=== PATIENT | male | born 1965 | race Hispanic/Latino ===

== ENCOUNTER 2023-09-11 05:57 | Day surgery (SDC) | payer OTHER ==
[2023-08-30 16:16] LABS: Protime INR 1.02
[2023-08-30 16:18] LABS: Absolute Lymphocytes (CBC) 2.1 K/uL (0.7-4.9); Hematocrit 39.7 % (39.6-49.0); Lymphocytes % 32.3 % (15.3-44.8); MCV 92.6 fL (80-100); MPV 9.5 fL (7.6-11.3); Platelets 207 thou/uL (152-406); RBC Red Blood Cell Count 4.29 M/uL (4.33-5.43)
[2023-08-30 16:47] LABS: Potassium 3.8 mEq/L (3.5-5.1)
--- NOTE | 2023-08-30 18:49 | RAD REPORT ---
EXAM DESCRIPTION: RAD - Chest Pa And Lat (2 Views) - 08/30/2023 3:56 pm CLINICAL HISTORY: pre op pending urolift/laser litho. Hypertension COMPARISON: No comparisons TECHNIQUE: PA and lateral views of the chest were obtained. FINDINGS: Right more than left interstitial prominence or perihilar hazy opacification. In the absen ce of any relevant signs/symptoms, findings may represent atelectasis versus mild central congestion. No other acute pulmonary process. Heart size is normal and central vasculature is within normal limi ts. No pleural effusion or pneumothorax seen. No acute bony finding noted. IMPRESSION: As above.
--- NOTE | 2023-08-31 14:24 | EKG ---
Test Date: 2023-08-30 Test Time: 16:28:08 Calendar Control Clerk Blood Bank: [facility] MEASUREMENT RESULTS: Intervals: Rate: 67 IN: 124 QRSD: 78 QT: 428 QTc: 452 [place]: P: 71 IN: 124 QRS: 54 T: -48 INTERPRETIVE STATEMENTS: Normal sinus rhythm T wave abnormality, consider inferior ischemia T wave abnormality, consider anterolateral ischemia Abnormal ECG No previous ECG available for comparison Electronically Signed On 08-31-23 14:22:15 RATE INSERTER by Nilo Choi
[2023-09-11] MEDS: Ringers Lactate 1,000 ML IV ONE ×2 (06:35→08:47)
[2023-09-11] MEDS: HYDRALAZINE HCL 20 MG/ML VIAL ONE ×2 (06:40→06:59)
[2023-09-11] MEDS ORDERED: LIDOCAINE 1% MPF 5 ML VIAL ONE (07:07)
[2023-09-11] MEDS ORDERED: propofoL 200 MG/20 ML VIAL IV ONE ×2 (07:07→14:55)
[2023-09-11] MEDS ORDERED: ONDANSETRON 4 MG/2 ML VIAL ONE (07:07)
[2023-09-11] MEDS ORDERED: MIDAZOLAM HCL 2 MG/2 ML INJ ONE (07:08)
[2023-09-11] MEDS ORDERED: FENTANYL CITR 100 MCG/2 ML ONE (07:08)
[2023-09-11] MEDS ORDERED: CEFAZOLIN SODIUM 2 GM/VIAL ONE (08:12)
[2023-09-11] MEDS: LABETALOL 20 MG/4ML SYRINGE IV SCH ×2 (08:17→08:35)
[2023-09-11] MEDS ORDERED: EPHEDRINE SULF 50 MG/ML VIAL ONE (09:10)
[2023-09-11] MEDS ORDERED: HYDROCODONE/APAP 7.5/325 MG TAB ONE (11:13)
[2023-09-11] MEDS ORDERED: PHENAZOPYRIDINE 100MG TAB PO ONE (11:36)
[2023-09-11] MEDS ORDERED: CODEINE 30MG/APAP 300MG TAB PO PRN (11:36)
--- NOTE | 2023-09-11 13:13 | OP ---
Surgeon: JESSE NAVARRO Preoperative Diagnoses: 1.Multiple bladder calculi, greater than 5, approximately 1.5 cm in diameter each. 2.BPH with lower urinary tract obstruction and symptoms. Postoperative Diagnoses: 1.Multiple bladder calculi, greater than 5, approximately 1.5 cm in diameter each. 2.BPH with lower urinary tract obstruction and symptoms. Principal Procedures: 1.Cystolitholapaxy with holmium laser. 2.Prostatic urethral lift/UroLift with 7 implants placed. Findings: 1.Multiple bladder calculi seen, some small, less than 5 mm, but at least 4 or 5 larger stones, each about 1.5 cm in diameter observed. 2.Significant BPH with interdigitating intraluminal obstruction and while continuous anterior channe l was visible, potential residual obstructing tissue observed that would potentially require at least an additional 3 implants. Indication For Procedure: Mr. Sukhjinder Quinones presented to the [facility] with gross hematuria and bothersome lower urinary symptoms due to BPH. He underwent evaluation revealing the presence of about 8 bladder calculi with the largest seen to be about 1 cm in diameter on outpatient cystoscopy. He also underwent transrectal ultrasonography, which revealed a 64.64 g gland, and his PSA was 1.97 from 08/06/2023 suggestive of a low risk of any significant prostate cancer. As a result, he was co unseled on the need for management of the bladder calculi and counseled on options for management of his obstruction due to BPH, which under lied the development of the bladder calculi. Procedure In Detail: The patient was consented in the preoperative holding area before being transfe rred to the operative suite where general anesthesia was induced. He was given Ancef 2 g IV antimicr obial prophylaxis, and pneumo boots were provided for DVT prophylaxis. He was placed in the lithotom y position, padded and secured to the table appropriately. His genitalia were prepped with Hibiclens and he was draped in standard fashion. The case was begun using a 22-Ecuadorean rigid cystoscope to tra verse the urethra into the bladder with ease. The previously observed interdigitating lateral lobar hypertrophy and elevated median bar was again observed. Upon entry into the bladder, the bladder leilani culi were noted dependent within the bladder. While some of the tiny sub 5 mm calculi did indeed com e out just with the scope being in place through the lumen of the scope, at least 5 additional calcul i were of significant size that required fragmentation. As a result, I used a 500 nm laser fiber nikita pemberton with a power setting of 1.2 and 15 to begin fragmenting the stone. I increase that power to 1 .5 and 25, because the stones were somewhat hard, and continued fragmentation. After each of the sto jayden was fragmented sufficient to remove the fragments via the cystoscope or with use of the [employer] topher cuator, I then confirmed all stone fragments were removed cystoscopically before then removing the cy stoscope and switching for the 20-Ecuadorean UroLift sheath and visual obturator. I then began the UroLi ft procedure by switching the visual obturator for an implant delivery device, and I targeted the fir st implant in the high anterior location at the bladder neck on the left. So starting by identifying a position at around the 1 o'clock position about 1.5 cm distal to the bladder neck on the left side , I angled the scope about 15 degrees and pulled the trigger the first time delivering the needle thr ough the substance of the prostate. I then angled the scope an additional 15 degrees to ensure compl ete delivery of the needle outside the capsular surface before pulling the trigger a second time depl oying the capsular tab and partially retracting the needle. I then pulled the needle a third time wh ich completely retracted the needle and further tensioned the suture. I then advanced the scope back toward the midline and then toward the bladder neck opening about 1.5 to 2 mm until the white line o f the monofilament was centered in the delivery bay and yet we were still distal to the bladder neck opening before I pulled the trigger a fourth time delivering the urethral in piece which did situate nicely elevating the bladder neck on the patient's left side. I then advanced the scope back into th e bladder and switched the delivery device for a new implant before targeting contralateral position on the patient's right side and placing a similar implant at around the 11 o'clock position on the pa tient's right side. This implant ended up placed about 0.5 cm more distal than the last implant, but nevertheless elevating the anterior portion of the prostate creating an opening at the bladder neck. I then turned my attention to the apex, where I placed an implant at the left apex at around the 2 to 3 o'clock position and then placed a similar implant contralaterally at the right side of the apex at around the 9 to 10 o'clock position. Once these implants were created, I then surveyed the chann el using a visual obturator, and there was still significant interdigitating lateral lobar hypertroph y between the apical implant at the verumontanum and the bladder neck implant. So, I then placed an additional implant in the mid zone of the prostate on the left side at around the 3 o'clock position lateralizing some tissue there. I then placed a contralateral implant on the patient's right side at around the 9 o'clock position. I then surveyed the channel created, and there was still some residu al urethral intrusion which appeared to be largely emanating from the patient's left side. So I targ eted the seventh and final implant on the patient's left side between the mid gland implant and the b ase implant ultimately nicely elevating and lateralizing the tissue in that location and creating a c ontinuous anterior channel that was visible with the visual obturator from the verumontanum into the bladder neck. At this point, I then surveyed the channel created which was indeed a nice continuous anterior channel, though there was a slight curvilinear progression from the verumontanum heading sli ghtly off to the right side at the bladder neck opening. I assessed the potential for 2 or 3 additio nal implants in order to make that channel completely straight and decreased the circuitous nature of it, but since a continuous anterior channel was visible and the maximum of 7 implants had already be en delivered, I elected to discontinue further implant placement and we will reassess his symptoms on followup. As a result, I left his bladder full of urine and there was minimal hematuria and removed the scope. I then passed an 18-Ecuadorean catheter into his bladder with ease and placed 15 cc of steri le water in the balloon. He was then taken out of the lithotomy position, awakened from general anes thesia, transferred to a stretcher, and then transferred to the recovery room in good condition. Complications: None. Discharge Disposition: We will reassess his symptoms on followup, which I expect will be significant ly improved given the presence of the visible continuous anterior channel. That said, if incomplete resolution of his obstructive symptoms is observed, he certainly could potentially benefit from additional at least 3 implants being placed, which can be done on subsequent UroLift excursion if necessary. WR/MODL Voice ID: [id number] Report ID: [id number]
[2023-09-11 14:05] VITALS: BP 158/95; TEMP 97; O2SAT 96
== END 2023-09-11 12:57 | disposition home or self-care (01) ==
LOC: OR 05:57
PROVIDERS: ATTEND Urology
PROC: 0T7D8DZ Dilation of Urethra with Intraluminal Device, Via Natural or Artificial Opening Endoscopic (ICD-10-PCS; principal; 2023-09-11 07:30)
PROC: 0TCB8ZZ Extirpation of Matter from Bladder, Via Natural or Artificial Opening Endoscopic (ICD-10-PCS; 2023-09-11 07:30)
DX: N40.1 Benign prostatic hyperplasia with lower urinary tract symptoms (principal); N21.0 Calculus in bladder; N13.8 Other obstructive and reflux uropathy; I10 Essential (primary) hypertension
CPT/HCPCS: 93005; 85025; 87086; 80048; 36415; 85610; 88300; 82360; 71046; 52441; 52442 ×6; 52317; J0360; J2704 ×2; J2001; J2250; J3010; J2405; J7120; 87088